=== PATIENT | male | born 1950 | race Native Hawaiian/Other Pacific Islander ===

== ENCOUNTER 2016-07-24 13:04 | Outpatient (CLI) | payer OTHER ==
[~2016-07-24 13:04] MED LIST: WARF5TAB6 PO
== END 2016-07-24 19:32 | disposition home or self-care (01) ==
LOC: LABW 13:04
DX: Z79.01 Long term (current) use of anticoagulants (principal); I48.0 Paroxysmal atrial fibrillation; Z51.81 Encounter for therapeutic drug level monitoring
CPT/HCPCS: 36415; 85610

== ENCOUNTER 2016-07-31 14:53 | Outpatient (CLI) | payer OTHER | END 2016-07-31 23:49 | disposition home or self-care (01) | LOC: LABW 14:53 | DX: Z79.01 Long term (current) use of anticoagulants (principal); I48.0 Paroxysmal atrial fibrillation; Z51.81 Encounter for therapeutic drug level monitoring | CPT/HCPCS: 36415; 85610 ==

== ENCOUNTER 2016-08-13 13:37 | Outpatient (CLI) | payer OTHER | END 2016-08-13 20:30 | disposition home or self-care (01) | LOC: LABW 13:37 | DX: Z79.01 Long term (current) use of anticoagulants (principal); I48.0 Paroxysmal atrial fibrillation; Z51.81 Encounter for therapeutic drug level monitoring | CPT/HCPCS: 36415; 85610 ==

== ENCOUNTER 2016-08-27 13:32 | Outpatient (CLI) | payer OTHER | END 2016-08-27 23:45 | disposition home or self-care (01) | LOC: LABW 13:32 | DX: Z79.01 Long term (current) use of anticoagulants (principal); I48.0 Paroxysmal atrial fibrillation; Z51.81 Encounter for therapeutic drug level monitoring | CPT/HCPCS: 36415; 85610 ==

== ENCOUNTER 2016-09-04 13:23 | Outpatient (CLI) | payer OTHER | END 2016-09-04 22:52 | disposition home or self-care (01) | LOC: LABW 13:23 | DX: Z79.01 Long term (current) use of anticoagulants (principal); I48.0 Paroxysmal atrial fibrillation; Z51.81 Encounter for therapeutic drug level monitoring | CPT/HCPCS: 36415; 85610 ==

== ENCOUNTER 2016-09-19 13:20 | Outpatient (CLI) | payer OTHER | END 2016-09-19 14:20 | disposition home or self-care (01) | LOC: LABW 13:20 | DX: Z79.01 Long term (current) use of anticoagulants (principal); I48.0 Paroxysmal atrial fibrillation; Z51.81 Encounter for therapeutic drug level monitoring | CPT/HCPCS: 36415; 85610 ==

== ENCOUNTER 2016-09-26 13:59 | Outpatient (CLI) | payer OTHER | END 2016-09-26 21:07 | disposition home or self-care (01) | LOC: LABW 13:59 | DX: I25.10 Atherosclerotic heart disease of native coronary artery without angina pectoris (principal); Z79.01 Long term (current) use of anticoagulants; I48.0 Paroxysmal atrial fibrillation | CPT/HCPCS: 36415; 85610 ==

== ENCOUNTER 2016-10-07 12:34 | Outpatient (CLI) | payer OTHER | END 2016-10-07 13:34 | disposition home or self-care (01) | LOC: LABW 12:34 | DX: Z79.01 Long term (current) use of anticoagulants (principal); I48.0 Paroxysmal atrial fibrillation; Z51.81 Encounter for therapeutic drug level monitoring | CPT/HCPCS: 36415; 85610 ==

== ENCOUNTER 2016-10-17 14:12 | Outpatient (CLI) | payer OTHER | END 2016-10-17 20:20 | disposition home or self-care (01) | LOC: LABW 14:12 | DX: Z79.01 Long term (current) use of anticoagulants (principal); I48.0 Paroxysmal atrial fibrillation; Z51.81 Encounter for therapeutic drug level monitoring | CPT/HCPCS: 36415; 85610 ==

== ENCOUNTER 2016-11-06 14:38 | Outpatient (CLI) | payer OTHER | END 2016-11-06 19:17 | disposition home or self-care (01) | LOC: LABW 14:38 | DX: Z79.01 Long term (current) use of anticoagulants (principal); I48.0 Paroxysmal atrial fibrillation | CPT/HCPCS: 36415; 85610 ==

== ENCOUNTER 2016-11-19 12:49 | Outpatient (CLI) | payer OTHER | END 2016-11-19 19:45 | disposition home or self-care (01) | LOC: LABW 12:49 | DX: Z79.01 Long term (current) use of anticoagulants (principal); I48.0 Paroxysmal atrial fibrillation; Z51.81 Encounter for therapeutic drug level monitoring | CPT/HCPCS: 36415; 85610 ==

== ENCOUNTER 2016-12-25 14:19 | Outpatient (CLI) | payer OTHER | END 2016-12-25 15:30 | disposition home or self-care (01) | LOC: LABW 14:19 | DX: Z79.01 Long term (current) use of anticoagulants (principal); Z79.899 Other long term (current) drug therapy; I48.0 Paroxysmal atrial fibrillation; Z51.81 Encounter for therapeutic drug level monitoring | CPT/HCPCS: 36415; 85610 ==

== ENCOUNTER 2017-01-10 09:12 | Outpatient (CLI) | payer OTHER ==
[2017-01-10 09:34] LABS: PLATELET COUNT 256 K/uL (142-355)
[2017-01-10 10:02] LABS: POTASSIUM 4.4 mmol/L (3.6-5.2); SODIUM 136 mmol/L (136-145)
== END 2017-01-10 19:08 | disposition home or self-care (01) ==
LOC: LABW 09:12
PROVIDERS: Nurse Practitioner Adult Health
DX: E03.8 Other specified hypothyroidism (principal); I38 Endocarditis, valve unspecified; E78.00 Pure hypercholesterolemia, unspecified; M10.9 Gout, unspecified; Z12.5 Encounter for screening for malignant neoplasm of prostate; Z79.01 Long term (current) use of anticoagulants; Z79.899 Other long term (current) drug therapy; I48.0 Paroxysmal atrial fibrillation
CPT/HCPCS: 36415; 80053; 80061; 81000; 84153; 84439; 84443; 84550; 85027; 85610

== ENCOUNTER 2017-02-13 14:31 | Outpatient (CLI) | payer OTHER | END 2017-02-13 15:35 | disposition home or self-care (01) | LOC: LABW 14:31 | DX: Z79.01 Long term (current) use of anticoagulants (principal); Z79.899 Other long term (current) drug therapy; I48.0 Paroxysmal atrial fibrillation; Z51.81 Encounter for therapeutic drug level monitoring | CPT/HCPCS: 36415; 85610 ==

== ENCOUNTER 2017-02-14 11:01 | Outpatient (CLI) | payer OTHER | END 2017-02-14 20:06 | disposition home or self-care (01) | LOC: RAD 11:01 | DX: M25.561 Pain in right knee (principal) ==

== ENCOUNTER 2017-02-14 16:08 | Outpatient (CLI) | payer OTHER | END 2017-02-14 20:09 | disposition home or self-care (01) | LOC: LAB 16:08 | DX: R53.83 Other fatigue (principal) | CPT/HCPCS: 83735; 84403 ==

== ENCOUNTER 2017-06-09 12:51 | Outpatient (CLI) | payer OTHER | END 2017-06-09 13:55 | disposition home or self-care (01) | LOC: LABW 12:51 | DX: Z79.01 Long term (current) use of anticoagulants (principal); Z79.899 Other long term (current) drug therapy; I48.0 Paroxysmal atrial fibrillation; Z51.81 Encounter for therapeutic drug level monitoring | CPT/HCPCS: 36415; 85610 ==

== ENCOUNTER 2017-07-16 13:27 | Outpatient (CLI) | payer OTHER | END 2017-07-16 19:40 | disposition home or self-care (01) | LOC: LABW 13:27 | PROVIDERS: Nurse Practitioner Adult Health | DX: I25.10 Atherosclerotic heart disease of native coronary artery without angina pectoris (principal); E78.2 Mixed hyperlipidemia; Z79.899 Other long term (current) drug therapy; Z51.81 Encounter for therapeutic drug level monitoring; Z79.01 Long term (current) use of anticoagulants | CPT/HCPCS: 36415; 80061; 80076; 85610 ==

== ENCOUNTER 2017-07-29 14:13 | Outpatient (CLI) | payer OTHER | END 2017-07-29 19:07 | disposition home or self-care (01) | LOC: LABW 14:13 | DX: Z79.01 Long term (current) use of anticoagulants (principal); Z79.899 Other long term (current) drug therapy; Z51.81 Encounter for therapeutic drug level monitoring; I48.0 Paroxysmal atrial fibrillation | CPT/HCPCS: 36415; 85610 ==

== ENCOUNTER 2017-08-04 13:48 | Outpatient (CLI) | payer OTHER | END 2017-08-04 21:13 | disposition home or self-care (01) | LOC: LABW 13:48 | DX: Z79.01 Long term (current) use of anticoagulants (principal); Z51.81 Encounter for therapeutic drug level monitoring; Z79.899 Other long term (current) drug therapy; I48.0 Paroxysmal atrial fibrillation | CPT/HCPCS: 36415; 85610 ==

== ENCOUNTER 2017-08-14 10:07 | Outpatient (CLI) | payer OTHER | END 2017-08-14 22:17 | disposition home or self-care (01) | LOC: LABW 10:07 | DX: Z79.01 Long term (current) use of anticoagulants (principal); Z79.899 Other long term (current) drug therapy; Z51.81 Encounter for therapeutic drug level monitoring; I48.0 Paroxysmal atrial fibrillation | CPT/HCPCS: 36415; 85610 ==

== ENCOUNTER 2017-08-25 15:32 | Outpatient (CLI) | payer OTHER | END 2017-08-25 20:09 | disposition home or self-care (01) | LOC: LABW 15:32 | DX: Z79.01 Long term (current) use of anticoagulants (principal); Z79.899 Other long term (current) drug therapy; I48.0 Paroxysmal atrial fibrillation; Z51.81 Encounter for therapeutic drug level monitoring | CPT/HCPCS: 36415; 85610 ==

== ENCOUNTER 2017-09-01 14:10 | Outpatient (CLI) | payer OTHER | END 2017-09-01 20:09 | disposition home or self-care (01) | LOC: LABW 14:10 | DX: Z79.01 Long term (current) use of anticoagulants (principal); Z51.81 Encounter for therapeutic drug level monitoring; Z79.899 Other long term (current) drug therapy; I48.0 Paroxysmal atrial fibrillation | CPT/HCPCS: 36415; 85610 ==

== ENCOUNTER 2017-09-10 09:49 | Outpatient (CLI) | payer OTHER ==
[~2017-09-10] VITALS: Ht 162.6 cm; Wt 75.3 kg
[2017-09-10 10:00] VITALS: BP 130/77; TEMP 97.6
[2017-09-10 11:30] VITALS: BP 136/74; TEMP 98.2
== END 2017-09-10 11:35 | disposition home or self-care (01) ==
LOC: INF 09:49
DX: R78.81 Bacteremia (principal)
CPT/HCPCS: 96365; 96375; J0696

== ENCOUNTER 2017-09-11 12:28 | Outpatient (CLI) | payer OTHER ==
[~2017-09-11] VITALS: Ht 162.6 cm; Wt 75.3 kg
== END 2017-09-11 14:00 | disposition home or self-care (01) ==
LOC: INF 12:28
DX: R78.81 Bacteremia (principal)
CPT/HCPCS: 96365; 96375; J0696; J1642

== ENCOUNTER 2017-09-12 11:55 | Outpatient (CLI) | payer OTHER | END 2017-09-12 21:25 | disposition home or self-care (01) | LOC: INF 11:55 | DX: R78.81 Bacteremia (principal) | CPT/HCPCS: 96365; 96375; J0696; J1642 ==

== ENCOUNTER 2017-09-13 10:48 | Outpatient (CLI) | payer OTHER | END 2017-09-13 21:11 | disposition home or self-care (01) | LOC: INF 10:48 | DX: R78.81 Bacteremia (principal); I38 Endocarditis, valve unspecified | CPT/HCPCS: 96365; 96375; J0696; J1642 ==

== ENCOUNTER 2017-09-14 11:06 | Outpatient (CLI) | payer OTHER | END 2017-09-14 21:34 | disposition home or self-care (01) | LOC: INF 11:06 | DX: R78.81 Bacteremia (principal); I38 Endocarditis, valve unspecified | CPT/HCPCS: 96365; 96375; J0696; J1642 ==

== ENCOUNTER 2017-09-15 11:25 | Outpatient (CLI) | payer OTHER ==
[~2017-09-15] VITALS: Ht 162.6 cm; Wt 75.3 kg
[2017-09-15 11:38] VITALS: BP 116/77; TEMP 97.8
[2017-09-15 12:44] VITALS: BP 115/61; TEMP 98.5
[2017-09-15 12:50] LABS: PLATELET COUNT 294 K/uL (142-355)
[2017-09-15 12:56] LABS: POTASSIUM 3.8 mmol/L (3.6-5.2)
== END 2017-09-15 21:32 | disposition home or self-care (01) ==
LOC: INF 11:25
PROVIDERS: Internal Medicine Infectious Disease
DX: R78.81 Bacteremia (principal)
CPT/HCPCS: 36591; 80053; 85027; 86140; 96365; 96375; J0696

== ENCOUNTER 2017-09-16 12:09 | Outpatient (CLI) | payer OTHER ==
[~2017-09-16] VITALS: Ht 162.6 cm; Wt 75.3 kg
[2017-09-16 12:00] VITALS: BP 114/79; TEMP 97.6
[2017-09-16 12:35] VITALS: BP 118/82; TEMP 98.1
== END 2017-09-16 13:25 | disposition home or self-care (01) ==
LOC: INF 12:09
DX: R78.81 Bacteremia (principal); I38 Endocarditis, valve unspecified
CPT/HCPCS: 96365; 96375; J0696

== ENCOUNTER 2017-09-18 13:07 | Outpatient (CLI) | payer OTHER | END 2017-09-18 19:22 | disposition home or self-care (01) | LOC: INF 13:07 | DX: R78.81 Bacteremia (principal); I38 Endocarditis, valve unspecified | CPT/HCPCS: 96365; 96375; J0696; J1642 ==

== ENCOUNTER 2017-09-19 09:49 | Outpatient (CLI) | payer OTHER | END 2017-09-19 11:00 | disposition home or self-care (01) | LOC: INF 09:49 | DX: R78.81 Bacteremia (principal); I38 Endocarditis, valve unspecified | CPT/HCPCS: 96365; 96375; J0696; J1642 ==

== ENCOUNTER 2017-09-20 12:36 | Outpatient (CLI) | payer OTHER | END 2017-09-20 22:25 | disposition home or self-care (01) | LOC: INF 12:36 | DX: R78.81 Bacteremia (principal); I38 Endocarditis, valve unspecified | CPT/HCPCS: 96365; 96375; J0696; J1642 ==

== ENCOUNTER 2017-09-21 13:01 | Outpatient (CLI) | payer OTHER | END 2017-09-21 21:24 | disposition home or self-care (01) | LOC: INF 13:01 | DX: R78.81 Bacteremia (principal); I38 Endocarditis, valve unspecified | CPT/HCPCS: 96365; J0696; J1642 ==

== ENCOUNTER 2017-09-22 12:53 | Outpatient (CLI) | payer OTHER ==
[2017-09-22 13:55] LABS: PLATELET COUNT 295 K/uL (142-355)
== END 2017-09-22 19:26 | disposition home or self-care (01) ==
LOC: INF 12:53
PROVIDERS: Internal Medicine Infectious Disease
DX: R78.81 Bacteremia (principal); I38 Endocarditis, valve unspecified
CPT/HCPCS: 36591; 80053; 85027; 86140; 96365; 96375; J0696; J1642

== ENCOUNTER 2017-09-23 12:15 | Outpatient (CLI) | payer OTHER ==
[~2017-09-23] VITALS: Ht 162.6 cm; Wt 75.3 kg
[2017-09-23 12:36] VITALS: BP 105/79; TEMP 97.9
[2017-09-23 14:00] VITALS: BP 102/68; TEMP 98.5
== END 2017-09-23 14:05 | disposition home or self-care (01) ==
LOC: INF 12:15
DX: R78.81 Bacteremia (principal); I38 Endocarditis, valve unspecified
CPT/HCPCS: 96365; 96375; J0696

== ENCOUNTER 2017-09-24 14:52 | Outpatient (CLI) | payer OTHER ==
[~2017-09-24] VITALS: Ht 162.6 cm; Wt 75.3 kg
[2017-09-24 14:58] VITALS: BP 129/80; TEMP 97.5
[2017-09-24 15:48] VITALS: BP 117/73; TEMP 97.9
== END 2017-09-24 15:52 | disposition home or self-care (01) ==
LOC: INF 14:52
DX: R78.81 Bacteremia (principal); I38 Endocarditis, valve unspecified
CPT/HCPCS: 96365; 96375; J0696

== ENCOUNTER 2017-09-25 12:56 | Outpatient (CLI) | payer OTHER ==
[~2017-09-25] VITALS: Ht 162.6 cm; Wt 75.3 kg
[2017-09-25 14:25] VITALS: BP 118/76; TEMP 97.5
[2017-09-25 15:34] VITALS: BP 107/74; TEMP 97.9
== END 2017-09-25 22:57 | disposition home or self-care (01) ==
LOC: INF 12:56
DX: R78.81 Bacteremia (principal); I38 Endocarditis, valve unspecified
CPT/HCPCS: 96365; 96375; J0696

== ENCOUNTER 2017-09-26 13:31 | Outpatient (CLI) | payer OTHER ==
[~2017-09-26] VITALS: Ht 162.6 cm; Wt 65.3 kg
== END 2017-09-26 23:01 | disposition home or self-care (01) ==
LOC: INF 13:31
DX: R78.81 Bacteremia (principal); I38 Endocarditis, valve unspecified
CPT/HCPCS: 96365; 96375; J0696

== ENCOUNTER 2017-09-27 13:11 | Outpatient (CLI) | payer OTHER | END 2017-09-27 19:32 | disposition home or self-care (01) | LOC: INF 13:11 | DX: R78.81 Bacteremia (principal); I38 Endocarditis, valve unspecified | CPT/HCPCS: 96365; 96375; J0696; J1642 ==

== ENCOUNTER 2017-09-28 12:47 | Outpatient (CLI) | payer OTHER | END 2017-09-28 21:44 | disposition home or self-care (01) | LOC: INF 12:47 | DX: R78.81 Bacteremia (principal); I38 Endocarditis, valve unspecified | CPT/HCPCS: 96365; J0696 ==

== ENCOUNTER 2017-09-29 12:33 | Outpatient (CLI) | payer OTHER ==
[~2017-09-29] VITALS: Ht 162.6 cm; Wt 75.3 kg
[2017-09-29 12:55] VITALS: BP 121/79; TEMP 97.6
[2017-09-29 13:09] LABS: PLATELET COUNT 305 K/uL (142-355)
[2017-09-29 13:40] VITALS: BP 124/76; TEMP 97.7
== END 2017-09-29 13:45 | disposition home or self-care (01) ==
LOC: INF 12:33
PROVIDERS: Emergency Medicine
DX: R78.81 Bacteremia (principal); I38 Endocarditis, valve unspecified; Z79.899 Other long term (current) drug therapy; Z79.01 Long term (current) use of anticoagulants; Z51.81 Encounter for therapeutic drug level monitoring
CPT/HCPCS: 80053; 85027; 85610; 86140; 96365; 96375; J0696; J1642

== ENCOUNTER 2017-09-30 12:59 | Outpatient (CLI) | payer OTHER ==
[~2017-09-30] VITALS: Ht 162.6 cm; Wt 75.3 kg
[2017-09-30 13:05] VITALS: BP 110/73; TEMP 97.6
[2017-09-30 14:25] VITALS: BP 107/78; TEMP 98.4
== END 2017-09-30 22:57 | disposition home or self-care (01) ==
LOC: INF 12:59
DX: R78.81 Bacteremia (principal); I38 Endocarditis, valve unspecified
CPT/HCPCS: 96365; 96375; J0696

== ENCOUNTER 2017-10-01 09:58 | Outpatient (CLI) | payer OTHER ==
[~2017-10-01] VITALS: Ht 162.6 cm; Wt 75.3 kg
[2017-10-01 10:05] VITALS: BP 112/72; TEMP 98.5
[2017-10-01 11:05] VITALS: BP 108/71; TEMP 98.4
== END 2017-10-01 18:10 | disposition home or self-care (01) ==
LOC: INF 09:58
DX: R78.81 Bacteremia (principal); I38 Endocarditis, valve unspecified
CPT/HCPCS: 96365; 96375; J0696

== ENCOUNTER 2017-10-02 12:06 | Outpatient (CLI) | payer OTHER ==
[~2017-10-02] VITALS: Ht 162.6 cm; Wt 75.3 kg
[2017-10-02 12:17] VITALS: BP 122/76; TEMP 97.4
[2017-10-02 12:39] LABS: PLATELET COUNT 293 K/uL (142-355)
[2017-10-02 13:23] VITALS: BP 128/72; TEMP 98.3
== END 2017-10-02 13:28 | disposition home or self-care (01) ==
LOC: INF 12:06
PROVIDERS: Emergency Medicine
DX: M13.872 Other specified arthritis, left ankle and foot (principal); R78.81 Bacteremia; I38 Endocarditis, valve unspecified
CPT/HCPCS: 36415; 80053; 84550; 85027; 85651; 86140; 96365; 96375; J0696

== ENCOUNTER 2017-10-03 12:58 | Outpatient (CLI) | payer OTHER ==
[~2017-10-03] VITALS: Ht 162.6 cm; Wt 75.3 kg
[2017-10-03 13:03] VITALS: BP 127/76; TEMP 97.5
[2017-10-03 13:55] VITALS: BP 96/74; TEMP 98
== END 2017-10-03 19:06 | disposition home or self-care (01) ==
LOC: INF 12:58
DX: R78.81 Bacteremia (principal); I38 Endocarditis, valve unspecified
CPT/HCPCS: 96365; 96375; J0696

== ENCOUNTER 2017-10-04 13:09 | Outpatient (CLI) | payer OTHER | END 2017-10-04 19:51 | disposition home or self-care (01) | LOC: INF 13:09 | DX: R78.81 Bacteremia (principal); I38 Endocarditis, valve unspecified | CPT/HCPCS: 96365; 96375; J0696 ==

== ENCOUNTER 2017-10-05 12:03 | Outpatient (CLI) | payer OTHER | END 2017-10-05 19:07 | disposition home or self-care (01) | LOC: INF 12:03 | DX: R78.81 Bacteremia (principal); I38 Endocarditis, valve unspecified | CPT/HCPCS: 96365; 96375; J0696 ==

== ENCOUNTER 2017-10-06 11:45 | Outpatient (CLI) | payer OTHER ==
[~2017-10-06] VITALS: Ht 162.6 cm; Wt 75.3 kg
[2017-10-06 11:59] VITALS: BP 108/68; TEMP 98.5
[2017-10-06 12:41] VITALS: BP 108/71; TEMP 98.5
[2017-10-06 13:08] LABS: PLATELET COUNT 261 K/uL (142-355)
[2017-10-06 13:30] LABS: POTASSIUM 4.1 mmol/L (3.6-5.2)
== END 2017-10-06 12:45 | disposition home or self-care (01) ==
LOC: INF 11:45
PROVIDERS: Family Medicine
DX: R78.81 Bacteremia (principal); I38 Endocarditis, valve unspecified
CPT/HCPCS: 36591; 80053; 85027; 86140; 96365; 96375; J0696

== ENCOUNTER 2017-10-07 14:43 | Outpatient (CLI) | payer OTHER ==
[~2017-10-07] VITALS: Ht 162.6 cm; Wt 75.3 kg
[2017-10-07 14:47] VITALS: BP 111/74; TEMP 97.6
[2017-10-07 15:47] VITALS: BP 106/70; TEMP 98.5
== END 2017-10-07 22:57 | disposition home or self-care (01) ==
LOC: INF 14:43
DX: R78.81 Bacteremia (principal); I38 Endocarditis, valve unspecified
CPT/HCPCS: 96365; 96375; J0696

== ENCOUNTER 2017-10-08 10:50 | Outpatient (CLI) | payer OTHER ==
[~2017-10-08] VITALS: Ht 162.6 cm; Wt 75.3 kg
[2017-10-08 10:55] VITALS: BP 126/73; TEMP 97.6
[2017-10-08 12:01] VITALS: BP 106/68; TEMP 97.9
== END 2017-10-08 22:26 | disposition home or self-care (01) ==
LOC: INF 10:50
DX: R78.81 Bacteremia (principal); I38 Endocarditis, valve unspecified
CPT/HCPCS: 96365; 96375; J0696

== ENCOUNTER 2017-10-09 11:51 | Outpatient (CLI) | payer OTHER ==
[~2017-10-09] VITALS: Ht 162.6 cm; Wt 75.3 kg
[2017-10-09 11:55] VITALS: BP 112/62; TEMP 97.7
[2017-10-09 12:55] VITALS: BP 99/54; TEMP 98.1
== END 2017-10-09 22:48 | disposition home or self-care (01) ==
LOC: INF 11:51
DX: R78.81 Bacteremia (principal); I38 Endocarditis, valve unspecified
CPT/HCPCS: 96365; 96375; J0696

== ENCOUNTER 2017-10-10 11:58 | Outpatient (CLI) | payer OTHER ==
[~2017-10-10] VITALS: Ht 162.6 cm; Wt 75.3 kg
[2017-10-10 12:05] VITALS: BP 114/70; TEMP 98.5
[2017-10-10 13:05] VITALS: BP 100/62; TEMP 98.6
== END 2017-10-10 13:10 | disposition home or self-care (01) ==
LOC: INF 11:58
DX: R78.81 Bacteremia (principal); I38 Endocarditis, valve unspecified
CPT/HCPCS: 96365; 96375; J0696

== ENCOUNTER 2017-10-12 11:43 | Outpatient (CLI) | payer OTHER | END 2017-10-12 21:14 | disposition home or self-care (01) | LOC: INF 11:43 | DX: R78.81 Bacteremia (principal); I38 Endocarditis, valve unspecified | CPT/HCPCS: 96365; J0696; J1642 ==

== ENCOUNTER 2017-10-13 14:17 | Outpatient (CLI) | payer OTHER ==
[~2017-10-13] VITALS: Ht 162.6 cm; Wt 75.3 kg
[2017-10-13 14:41] LABS: PLATELET COUNT 282 K/uL (142-355)
[2017-10-13 15:12] LABS: POTASSIUM 4.1 mmol/L (3.6-5.2)
== END 2017-10-13 21:50 | disposition home or self-care (01) ==
LOC: INF 14:17
PROVIDERS: Specialist
DX: Z79.01 Long term (current) use of anticoagulants (principal); I48.0 Paroxysmal atrial fibrillation; Z51.81 Encounter for therapeutic drug level monitoring; R78.81 Bacteremia; I38 Endocarditis, valve unspecified
CPT/HCPCS: 36591; 80053; 85027; 85610; 86140; 96365; J0696

== ENCOUNTER 2017-10-14 14:03 | Outpatient (CLI) | payer OTHER ==
[~2017-10-14] VITALS: Ht 162.6 cm; Wt 75.3 kg
[2017-10-14 14:32] VITALS: BP 125/75; TEMP 97.6
[2017-10-14 15:20] VITALS: BP 117/72; TEMP 98.2
== END 2017-10-14 21:58 | disposition home or self-care (01) ==
LOC: INF 14:03
DX: R78.81 Bacteremia (principal); I38 Endocarditis, valve unspecified
CPT/HCPCS: 96365; 96375; J0696

== ENCOUNTER 2017-10-15 11:05 | Outpatient (CLI) | payer OTHER ==
[~2017-10-15] VITALS: Ht 162.6 cm; Wt 75.3 kg
[2017-10-15 11:13] VITALS: BP 112/71; TEMP 97.8
[2017-10-15 12:04] VITALS: BP 98/65; TEMP 98
== END 2017-10-15 20:29 | disposition home or self-care (01) ==
LOC: INF 11:05
DX: R78.81 Bacteremia (principal); I38 Endocarditis, valve unspecified
CPT/HCPCS: 96365; 96375; J0696

== ENCOUNTER 2017-10-16 11:23 | Outpatient (CLI) | payer OTHER ==
[~2017-10-16] VITALS: Ht 162.6 cm; Wt 75.3 kg
== END 2017-10-16 12:25 | disposition home or self-care (01) ==
LOC: INF 11:23
DX: R78.81 Bacteremia (principal); I38 Endocarditis, valve unspecified
CPT/HCPCS: 96365; 96375; J0696

== ENCOUNTER 2017-10-17 11:04 | Outpatient (CLI) | payer OTHER ==
[~2017-10-17] VITALS: Ht 162.6 cm; Wt 75.3 kg
== END 2017-10-17 19:25 | disposition home or self-care (01) ==
LOC: INF 11:04
DX: R78.81 Bacteremia (principal); I38 Endocarditis, valve unspecified
CPT/HCPCS: 96365; J0696

== ENCOUNTER 2017-11-24 10:30 | Outpatient (CLI) | payer OTHER ==
[2017-11-24 11:20] LABS: PLATELET COUNT 325 K/uL (142-355)
[2017-11-24 11:53] LABS: POTASSIUM 4.1 mmol/L (3.6-5.2)
== END 2017-11-24 19:59 | disposition home or self-care (01) ==
LOC: LABW 10:30
PROVIDERS: Internal Medicine Infectious Disease
DX: I38 Endocarditis, valve unspecified (principal); Z79.01 Long term (current) use of anticoagulants; Z79.899 Other long term (current) drug therapy; I48.0 Paroxysmal atrial fibrillation; Z51.81 Encounter for therapeutic drug level monitoring
CPT/HCPCS: 36415; 80048; 85027; 85610; 86140

== ENCOUNTER 2018-01-02 13:15 | Outpatient (CLI) | payer OTHER ==
[2018-01-02 13:36] LABS: PLATELET COUNT 377 K/uL (142-355)
== END 2018-01-02 19:12 | disposition home or self-care (01) ==
LOC: LABW 13:15
PROVIDERS: Internal Medicine Infectious Disease
DX: I38 Endocarditis, valve unspecified (principal); Z79.01 Long term (current) use of anticoagulants; I48.0 Paroxysmal atrial fibrillation; Z51.81 Encounter for therapeutic drug level monitoring
CPT/HCPCS: 36415; 85027; 85610; 86140

== ENCOUNTER 2018-01-05 12:20 | Outpatient (CLI) | payer OTHER | END 2018-01-05 19:49 | disposition home or self-care (01) | LOC: LABW 12:20 | DX: Z79.01 Long term (current) use of anticoagulants (principal); I48.0 Paroxysmal atrial fibrillation; Z51.81 Encounter for therapeutic drug level monitoring | CPT/HCPCS: 36415; 85610 ==

== ENCOUNTER 2018-02-13 10:12 | Outpatient (CLI) | payer OTHER | END 2018-02-13 19:53 | disposition home or self-care (01) | LOC: LABW 10:12 | DX: I48.0 Paroxysmal atrial fibrillation (principal); Z79.899 Other long term (current) drug therapy; Z79.01 Long term (current) use of anticoagulants | CPT/HCPCS: 36415; 85610 ==

== ENCOUNTER 2018-04-22 12:19 | Outpatient (CLI) | payer OTHER | END 2018-04-22 19:23 | disposition home or self-care (01) | LOC: LABW 12:19 | PROVIDERS: Nurse Practitioner Adult Health | DX: E78.2 Mixed hyperlipidemia (principal); Z79.899 Other long term (current) drug therapy; I48.0 Paroxysmal atrial fibrillation | CPT/HCPCS: 36415; 80061; 80076; 85610 ==

== ENCOUNTER 2018-07-14 09:56 | Outpatient (CLI) | payer OTHER | END 2018-07-14 23:01 | disposition home or self-care (01) | LOC: LABW 09:56 | DX: I48.0 Paroxysmal atrial fibrillation (principal); Z79.899 Other long term (current) drug therapy; Z79.01 Long term (current) use of anticoagulants | CPT/HCPCS: 36415; 85610 ==

== ENCOUNTER 2018-08-31 10:12 | Outpatient (CLI) | payer OTHER | END 2018-08-31 19:59 | disposition home or self-care (01) | LOC: LABW 10:12 | DX: I48.0 Paroxysmal atrial fibrillation (principal); Z79.01 Long term (current) use of anticoagulants | CPT/HCPCS: 36415; 85610 ==

== ENCOUNTER 2018-10-07 15:00 | Outpatient (CLI) | payer OTHER | END 2018-10-07 20:08 | disposition home or self-care (01) | LOC: LABW 15:00 | DX: Z79.01 Long term (current) use of anticoagulants (principal); Z79.899 Other long term (current) drug therapy; I48.0 Paroxysmal atrial fibrillation | CPT/HCPCS: 36415; 85610 ==

== ENCOUNTER 2018-10-21 15:01 | Outpatient (CLI) | payer OTHER | END 2018-10-21 23:48 | disposition home or self-care (01) | LOC: LABW 15:01 | DX: Z79.01 Long term (current) use of anticoagulants (principal); Z79.899 Other long term (current) drug therapy; I48.0 Paroxysmal atrial fibrillation | CPT/HCPCS: 36415; 85610 ==

== ENCOUNTER 2018-12-14 15:13 | Outpatient (CLI) | payer OTHER | END 2018-12-14 19:20 | disposition home or self-care (01) | LOC: LABW 15:13 | DX: I48.0 Paroxysmal atrial fibrillation (principal); Z79.899 Other long term (current) drug therapy; Z79.01 Long term (current) use of anticoagulants | CPT/HCPCS: 36415; 85610 ==

== ENCOUNTER 2019-03-16 08:16 | Outpatient (CLI) | payer OTHER | END 2019-03-16 20:14 | disposition home or self-care (01) | LOC: LABW 08:16 | DX: I48.2 Chronic atrial fibrillation (principal); Z79.01 Long term (current) use of anticoagulants | CPT/HCPCS: 36415; 85610 ==

== ENCOUNTER 2019-05-19 10:18 | Outpatient (CLI) | payer OTHER | END 2019-05-19 21:20 | disposition home or self-care (01) | LOC: LABW 10:18 | DX: I48.20 Chronic atrial fibrillation, unspecified (principal); Z79.01 Long term (current) use of anticoagulants | CPT/HCPCS: 36415; 85610 ==

== ENCOUNTER 2019-07-06 07:31 | Outpatient (CLI) | payer OTHER | END 2019-07-06 20:06 | disposition home or self-care (01) | LOC: LABW 07:31 | PROVIDERS: Nurse Practitioner Adult Health | DX: E78.2 Mixed hyperlipidemia (principal); Z79.899 Other long term (current) drug therapy; Z79.01 Long term (current) use of anticoagulants; I48.20 Chronic atrial fibrillation, unspecified | CPT/HCPCS: 36415; 80061; 80076; 85610 ==

== ENCOUNTER 2019-11-01 13:37 | Outpatient (CLI) | payer OTHER | END 2019-11-01 19:39 | disposition home or self-care (01) | LOC: LABW 13:37 | DX: I48.20 Chronic atrial fibrillation, unspecified (principal); Z79.01 Long term (current) use of anticoagulants | CPT/HCPCS: 36415; 85610 ==

== ENCOUNTER 2020-01-17 08:44 | Outpatient (CLI) | payer OTHER ==
[2020-01-17 10:57] LABS: PLATELET COUNT 222 K/uL (142-355)
== END 2020-01-17 19:17 | disposition home or self-care (01) ==
LOC: LABW 08:44
PROVIDERS: Nurse Practitioner Adult Health
DX: E87.6 Hypokalemia (principal); I48.20 Chronic atrial fibrillation, unspecified; Z79.899 Other long term (current) drug therapy; Z79.01 Long term (current) use of anticoagulants; E03.8 Other specified hypothyroidism; M10.9 Gout, unspecified; D68.8 Other specified coagulation defects; I10 Essential (primary) hypertension
CPT/HCPCS: 36415; 80053; 80061; 81000; 84439; 84443; 84550; 85027; 85610

== ENCOUNTER 2020-02-14 11:59 | Outpatient (CLI) | payer OTHER | END 2020-02-14 19:19 | disposition home or self-care (01) | LOC: LABW 11:59 | PROVIDERS: Nurse Practitioner Adult Health | DX: E78.2 Mixed hyperlipidemia (principal); I48.20 Chronic atrial fibrillation, unspecified; Z79.899 Other long term (current) drug therapy; Z79.01 Long term (current) use of anticoagulants | CPT/HCPCS: 36415; 80048; 80061; 80076; 85610 ==

== ENCOUNTER 2020-07-11 14:58 | Outpatient (CLI) | payer OTHER | END 2020-07-11 22:16 | disposition home or self-care (01) | LOC: LABW 14:58 | PROVIDERS: ATTEND Nurse Practitioner Adult Health | DX: I48.20 Chronic atrial fibrillation, unspecified (principal); Z79.01 Long term (current) use of anticoagulants | CPT/HCPCS: 36415; 85610 ==

== ENCOUNTER 2020-09-28 12:03 | Outpatient (CLI) | payer OTHER ==
[2020-09-28 12:42] LABS: POTASSIUM 4.4 mmol/L (3.6-5.2)
== END 2020-09-28 19:35 | disposition home or self-care (01) ==
LOC: LABW 12:03
PROVIDERS: ATTEND Specialist
DX: E78.2 Mixed hyperlipidemia (principal); Z79.899 Other long term (current) drug therapy; Z79.01 Long term (current) use of anticoagulants; I48.20 Chronic atrial fibrillation, unspecified
CPT/HCPCS: 36415; 80048; 80061; 80076; 85610

== ENCOUNTER 2020-11-20 08:03 | Outpatient (CLI) | payer OTHER | END 2020-11-20 19:52 | disposition home or self-care (01) | LOC: LABW 08:03 | PROVIDERS: ATTEND Nurse Practitioner Adult Health | DX: Z79.01 Long term (current) use of anticoagulants (principal); I48.20 Chronic atrial fibrillation, unspecified | CPT/HCPCS: 36415; 85610 ==

== ENCOUNTER 2020-12-13 10:57 | Outpatient (CLI) | payer OTHER | END 2020-12-13 23:03 | disposition home or self-care (01) | LOC: LABW 10:57 | PROVIDERS: ATTEND Nurse Practitioner Adult Health | DX: I48.20 Chronic atrial fibrillation, unspecified (principal); Z79.01 Long term (current) use of anticoagulants | CPT/HCPCS: 36415; 85610 ==

== ENCOUNTER 2021-01-01 09:22 | Outpatient (CLI) | payer OTHER | END 2021-01-01 17:00 | disposition home or self-care (01) | LOC: LABW 09:22 | PROVIDERS: ATTEND Nurse Practitioner Adult Health | DX: I48.20 Chronic atrial fibrillation, unspecified (principal); Z79.01 Long term (current) use of anticoagulants | CPT/HCPCS: 36415; 85610 ==

== ENCOUNTER 2021-01-16 08:54 | Outpatient (CLI) | payer OTHER | END 2021-01-16 21:51 | disposition home or self-care (01) | LOC: LABW 08:54 | PROVIDERS: ATTEND Nurse Practitioner Adult Health | DX: I48.20 Chronic atrial fibrillation, unspecified (principal); Z79.01 Long term (current) use of anticoagulants | CPT/HCPCS: 36415; 85610 ==

== ENCOUNTER 2021-02-14 15:43 | Outpatient (CLI) | payer OTHER | END 2021-02-14 19:06 | disposition home or self-care (01) | LOC: LABW 15:43 | PROVIDERS: ATTEND Nurse Practitioner Adult Health | DX: Z79.01 Long term (current) use of anticoagulants (principal); I48.20 Chronic atrial fibrillation, unspecified | CPT/HCPCS: 36415; 85610 ==

== ENCOUNTER 2021-02-21 14:35 | Outpatient (CLI) | payer OTHER ==
[2021-02-21 15:25] LABS: PARTIAL THROMBOPLASTIN TIME 37.8 SECONDS (24.5-33.6)
== END 2021-02-21 21:17 | disposition home or self-care (01) ==
LOC: LABW 14:35
PROVIDERS: ATTEND Specialist
DX: I48.21 Permanent atrial fibrillation (principal); Z51.81 Encounter for therapeutic drug level monitoring; Z79.01 Long term (current) use of anticoagulants
CPT/HCPCS: 36415; 85610; 85730

== ENCOUNTER 2021-03-02 10:22 | Outpatient (CLI) | payer OTHER | END 2021-03-02 21:59 | disposition home or self-care (01) | LOC: LABW 10:22 | PROVIDERS: ATTEND Internal Medicine | DX: I48.21 Permanent atrial fibrillation (principal); Z51.81 Encounter for therapeutic drug level monitoring; Z79.01 Long term (current) use of anticoagulants; M25.512 Pain in left shoulder | CPT/HCPCS: 36415; 85610 ==

== ENCOUNTER 2021-03-13 09:57 | Outpatient (CLI) | payer OTHER ==
[2021-03-13 10:48] LABS: PARTIAL THROMBOPLASTIN TIME 41.3 SECONDS (24.5-33.6)
== END 2021-03-13 20:34 | disposition home or self-care (01) ==
LOC: LABW 09:57
PROVIDERS: ATTEND Specialist
DX: I48.21 Permanent atrial fibrillation (principal); Z51.81 Encounter for therapeutic drug level monitoring; Z79.01 Long term (current) use of anticoagulants
CPT/HCPCS: 36415; 85610; 85730

== ENCOUNTER 2021-04-02 07:44 | Outpatient (CLI) | payer OTHER | END 2021-04-02 19:21 | disposition home or self-care (01) | LOC: LABW 07:44 | PROVIDERS: ATTEND Specialist | DX: I48.21 Permanent atrial fibrillation (principal); Z51.81 Encounter for therapeutic drug level monitoring; Z79.01 Long term (current) use of anticoagulants | CPT/HCPCS: 36415; 85610; 85730 ==

== ENCOUNTER 2021-05-08 07:33 | Outpatient (CLI) | payer OTHER ==
[2021-05-08 08:03] LABS: PARTIAL THROMBOPLASTIN TIME 34.7 SECONDS (24.5-33.6)
== END 2021-05-08 21:17 | disposition home or self-care (01) ==
LOC: LABW 07:33
PROVIDERS: ATTEND Nurse Practitioner Adult Health
DX: E78.49 Other hyperlipidemia (principal); Z79.899 Other long term (current) drug therapy; I48.21 Permanent atrial fibrillation; Z51.81 Encounter for therapeutic drug level monitoring; Z79.01 Long term (current) use of anticoagulants
CPT/HCPCS: 36415; 80061; 80076; 85610; 85730

== ENCOUNTER 2021-05-21 08:33 | Outpatient (CLI) | payer OTHER ==
[2021-05-21 09:35] LABS: PARTIAL THROMBOPLASTIN TIME 35.1 SECONDS (24.5-33.6)
== END 2021-05-21 21:46 | disposition home or self-care (01) ==
LOC: LABW 08:33
PROVIDERS: ATTEND Specialist
DX: I48.21 Permanent atrial fibrillation (principal); Z51.81 Encounter for therapeutic drug level monitoring; Z79.01 Long term (current) use of anticoagulants
CPT/HCPCS: 36415; 85610; 85730